=== PATIENT | female | born 1930 | race Caucasian/White ===

== ENCOUNTER → 2017-01-26 | Outpatient (CLI) | payer OTHER ==
[~2017-01-26] MED LIST: ASC400 PO; ASCA500 PO; ASCO1CAP3 PO; B-COCAP2 PO; B-COTAB18 PO; FERR1TAB23 PO; HRBLS PO; IBUP600T44 PO; PRCUNK PO; VITA1CAP5 PO; VITA400C15 PO; ZINC COMPLEX PO
[2017-01-26 17:34] LABS: HEMATOCRIT 36.3 % (37-47); MEAN CELL VOLUME 96.5 fL (80-100); MEAN CORPUSCULAR HEMOGLOBIN 30.9 pg (25-34); MEAN PLATELET VOLUME 10.5 fL (7.4-10.4); PLATELET COUNT 199 K/uL (130-400); RED BLOOD COUNT 3.76 M/uL (4.2-5.4); WHITE BLOOD COUNT 5.82 K/uL (4.8-10.8)
[2017-01-26 17:43] LABS: BLOOD UREA NITROGEN 31 mg/dl (7-18); BUN/CREATININE RATIO 20.8 (10-20); CALCIUM 8.6 mg/dl (8.5-10.1); CARBON DIOXIDE 28 mmol/L (21-32); CHLORIDE 108 mmol/L (98-107); GLUCOSE 99 mg/dl (70-99); POTASSIUM 4.4 mmol/L (3.5-5.1); SODIUM 144 mmol/L (136-145)
== END | disposition home or self-care (01) ==
LOC: C.LABPVFM 14:41
PROVIDERS: ATTEND Family Medicine
DX: D64.9 Anemia, unspecified (principal); N28.9 Disorder of kidney and ureter, unspecified

== ENCOUNTER 2017-02-22 03:51 | Emergency (ER) | payer OTHER ==
[~2017-02-22] VITALS: Ht 157.5 cm; Wt 59.9 kg
[~2017-02-22 03:51] MED LIST changes: -ASCO1CAP3 PO; -B-COTAB18 PO; -FERR1TAB23 PO; -VITA1CAP5 PO
[2017-02-22 03:58] VITALS: TEMP 36.6; Ht 157.5 cm; Wt 59.9 kg
--- NOTE | 2017-02-22 04:04 | EMERGENCY ROOM VISIT NOTE ---
History Report prepared by Sawyer: Ole Cohen Under the Supervision of: Dr. Carissa Navarrete D.O. First contact with patient: 03:55 Chief Complaint: FALL Stated Complaint: fall, lac History of Present Illness The patient is an 87 year old female who presents to the Emergency Room via emergency medical services following a traumatic falling episode that occurred shortly prior to arrival. The patient states that she was trying to get to the bathroom when she fell down the steps. She slid down the entire stair-case on her back as she could not stop herself. She is currently experiencing pain in her back and neck. She denies going unconscious at anytime during this episode. She is not on any blood thinning medication. Source of History: patient Onset: Shortly [employer] OPERATIONS [employer]IST Position: back Quality: other (Fall) Associated Symptoms: + neck pain Review of Systems See HPI for pertinent positives & negatives. A total of 10 systems reviewed and were otherwise negative. Past Medical & Surgical Medical Problems: (1) GERD (gastroesophageal reflux disease) (2) History of dementia (3) Hypertension GERD (gastroesophageal reflux disease) History of dementia Hypertension Family History No pertinent family histories secondary to age. Social History Drug Use: none Marital Status: Housing Status: lives with significant other Occupation Status: unemployed Current/Historical Medications Scheduled Ascorbic Acid (Vitamin C), 500 MG PO DAILY B-Complex Vitamins (Vitamin B Complex), 1 TAB PO DAILY Ferrous Sulfate (Iron), Unknown Dose PO DAILY Vitamin E (E400), 400 INTER.UNIT PO DAILY Allergies Coded Allergies: No Known Allergies (Verified , NONE, 02/22/17) Physical Exam Vital Signs Date Time Temp Pulse Resp B/P Pulse Ox O2 Delivery O2 Flow Rate FiO2 02/22/17 05:55 111 18 175/102 98 Room Air 02/22/17 05:46 88 02/22/17 03:58 36.6 104 18 191/118 96 Room Air Physical Exam HEENT: Head - There is a laceration on the frontal scalp, 6 cm in length. Pupils are equal, round, and reactive to light. Extraocular eye muscles are intact and sclera are anicteric. Ears - bilaterally patent canals with no evidence of hemotympanum. Nose - moist nasal mucosa without evidence of trauma or discharge. Mouth - moist buccal mucosa with no trauma to the teeth or signs of malocclusion. Neck: The cervical collar was temporarily removed while in-line stabilization was maintained. The neck is supple and there is moderate pain to palpation over the posterior cervical spine and no obvious step-offs or deformities. There is no JVD or tracheal deviation. Chest: There are no signs of deformities, contusions or abrasions to the chest wall. There is no obvious crepitus or paradoxical chest rise. Heart: Regular, rate, and rhythm. There is a normal S1 and S2 with no murmurs, clicks, or gallops appreciated. Lungs: Clear to auscultation bilaterally with no wheezes, rales, or rhonchi. Abdomen: Soft, completely nontender, nondistended, with good bowel sounds. There is no sign of trauma such as contusions, abrasions or penetrations. There are no palpable pulsatile masses or hepatosplenomegaly. There is no guarding, rigidity, or rebound noted. Pelvis: Stable to rock and compression. Extremities: No obvious trauma, deformities, contusions, or edema. There are easily palpable peripheral pulses. Neuro: The patient is awake and alert and easily able to follow commands. Muscle strength is 5 out of 5 in all 4 extremities. Otherwise, neuro exam is unremarkable. Back: There is pain to palpation in the upper thoracic spine. The entire thoracic, lumbar, and sacral spine were palpated. There are no obvious step- offs or deformities noted. There are no obvious signs of trauma such as contusions abrasions penetrations noted to the back. Medical Decision & Procedures ER Provider Diagnostic Interpretation: Radiology results as stated below per my review and the radiologist's interpretation: CT HEAD: No ICH, mass effect or edema. No skull fracture. Left Mastoid fluid. Sinus disease, may be acute in the right sphenoid. CT C SPINE: Comminuted fracture of the right anterior arch of C1. Fracture of the right posterior arch of C1. Mild widening of the anterior disc space at C1-2 on the right, may be due to ligamentous injury. CT T SPINE: Compression deformities at T3 and T7, possibly acute. Radiologist: Rajani Turcios M.D. Laboratory Results 02/22/17 04:23 02/22/17 04:23 Test 02/22/17 04:23 02/22/17 05:15 Red Blood Count 3.81 M/uL (4.2-5.4) Mean Corpuscular Volume 95.0 fL (80-100) Mean Corpuscular Hemoglobin 30.7 pg (25-34) Mean Corpuscular Hemoglobin Concent 32.3 g/dl (32-36) RDW Standard Deviation 48.5 fL (36.4-46.3) RDW Coefficient of Variation 14.0 % (11.5-14.5) Mean Platelet Volume 9.8 fL (7.4-10.4) Anion Gap 7.0 mmol/L (3-11) Est Creatinine Clear Calc Drug Dose 20.0 ml/min Estimated GFR () 33.5 Estimated GFR (Non- 28.9 BUN/Creatinine Ratio 18.5 (10-20) Calcium Level 8.8 mg/dl (8.5-10.1) Total Bilirubin 0.4 mg/dl (0.2-1) Direct Bilirubin < 0.1 mg/dl (0-0.2) Aspartate Amino Transf (AST/SGOT) 27 U/L (15-37) Alanine Aminotransferase (ALT/SGPT) 26 U/L (12-78) Alkaline Phosphatase 87 U/L (45-117) Total Protein 6.4 gm/dl (6.4-8.2) Albumin 3.1 gm/dl (3.4-5.0) Urine Color YELLOW Urine Appearance CLEAR (CLEAR) Urine pH 6.0 (4.5-7.5) Urine Specific [place] 1.015 (1.000-1.030) Urine Protein NEG (NEG) Urine Glucose (UA) NEG (NEG) Urine Ketones NEG (NEG) Urine Occult Blood 1+ (NEG) Urine Nitrite POS (NEG) Urine Bilirubin NEG (NEG) Urine Urobilinogen NEG (NEG) Urine Leukocyte Esterase TRACE (NEG) Laboratory results per my review. Medications Administered Medications (Trade) Dose Ordered Sig/Kita Route Start Time Stop Time Status Last Admin Dose Admin Fentanyl Citrate (Fentanyl Inj) 50 mcg NOW ONCE IV 02/22/17 05:45 02/22/17 05:46 DC 02/22/17 06:01 50 MCG Procedure Laceration Repair: See dictation by Patric Ash PA-C for laceration repair notes. Medications Ordered: Fentanyl ECG Indication: other (Fall) Rate (beats per minute): 81 Rhythm: normal sinus Findings: no acute ischemic change, no ectopy ED Course 0401: Past medical records reviewed. The patient was evaluated in room B12. A complete history and physical exam was performed. Laboratory studies were drawn as above. The patient went for CT scan of the brain, cervical spine and thoracic spine. She had a twelve-lead EKG as described above. 0515: Ordered Lidocaine HCl 20 mL (procedural). The wound on her scalp was repaired by Patric Sears PA-C. 0545: Ordered Fentanyl Citrate 50 mcg IV. 0546: I discussed the case with Dr. Lisa Ash day Emergency Medicine at this time, she will accept the patient for transfer to [facility]. Medical Decision This patient is an 87 year old female who presents to the emergency department following a falling episode. Differential diagnosis include; closed head injury , scalp laceration, skull fracture, intracranial trauma cervical spine fracture , and thoracic spine fracture. Laboratory studies were reviewed and show; Hemoglobin of 11.7 which is baseline for her, no leukocytosis, BUN of 30, Creatinine of 1.6 which is baseline renal function for her, normal LFTs. The patient continues to complain of neck pain and upper back pain. CT scan shows evidence of a C1 comminuted fracture. There is questionable ligamentous injury between C1-C2. She also has compression deformities at T3 and T7. The patient is neurologically intact. The patient was given fentanyl for pain. She is resting comfortably at this time. The laceration to the scalp was repaired. I discussed the case with Dr. Gonzalez at [facility] and she will accept the patient in transfer. Consults Time Called: 0540 Consulting Physician: Dr. Lisa Ash day Emergency Medicine Returned Call: [phone] I discussed the case with Dr. Lisa Ash day Emergency Medicine at this time , she will accept the patient for transfer to [facility]. Impression Primary Impression: C1 cervical fracture Additional Impressions: Fall down steps T3 vertebral fracture T7 vertebral fracture Scribe Attestation The scribe's documentation has been prepared under my direction and personally reviewed by me in its entirety. I confirm that the note above accurately reflects all work, treatment, procedures, and medical decision making performed by me. Departure Information Dispostion Transfer Acute Care Facility ([facility]) Referrals Kamlesh Galvez M.D. (PCP) Patient Instructions My [facility] Problem Qualifiers
[2017-02-22 04:36] LABS: HEMATOCRIT 36.2 % (37-47); MEAN CORPUSCULAR HEMOGLOBIN 30.7 pg (25-34); MEAN CORPUSCULAR HGB CONC 32.3 g/dl (32-36); MEAN PLATELET VOLUME 9.8 fL (7.4-10.4); PLATELET COUNT 175 K/uL (130-400); RED BLOOD COUNT 3.81 M/uL (4.2-5.4); WHITE BLOOD COUNT 6.68 K/uL (4.8-10.8)
[2017-02-22] MEDS ORDERED: ASCO1CAP3 PO (04:53)
[2017-02-22] MEDS ORDERED: VITA1CAP5 PO (04:55)
[2017-02-22] MEDS ORDERED: B-COTAB18 PO (04:56)
[2017-02-22] MEDS ORDERED: FERR1TAB23 PO (04:57)
[2017-02-22 05:09] LABS: ALT/SGPT 26 U/L (12-78); AST/SGOT 27 U/L (15-37); BLOOD UREA NITROGEN 30 mg/dl (7-18); BUN/CREATININE RATIO 18.5 (10-20); CALCIUM 8.8 mg/dl (8.5-10.1); CARBON DIOXIDE 29 mmol/L (21-32); CHLORIDE 111 mmol/L (98-107); GLUCOSE 97 mg/dl (70-99); POTASSIUM 3.8 mmol/L (3.5-5.1); SODIUM 147 mmol/L (136-145)
[2017-02-22 05:12] LABS: ALKALINE PHOSPHATASE 87 U/L (45-117)
[2017-02-22] MEDS ORDERED: XYLOCAINE 1%/SOD BICARB 20 ML VIAL INFIL ONE (05:15)
[2017-02-22] MEDS ORDERED: FENTANYL CITRATE INJ 50 MCG/1 ML 2 ML VIAL IV ONE (05:45)
--- NOTE | 2017-02-22 05:59 | EMERGENCY ROOM VISIT NOTE ---
ED Visit Note Patient was seen and evaluated the request of my attending physician, Dr. Navarrete , for a head laceration. Please see Dr. Navarrete's dictation for full history of present illness and Emergency Department course outside of this repair. In short, the patient suffered a fall down several stairs at home. Subsequently the patient now has a 6 cm fairly linear laceration over the frontal scalp. Bleeding is well-controlled. Laceration repair. Patient elects to have their laceration repaired. Verbal consent was obtained to perform the procedure. There is an abundance of materials available for the procedure. Patient is not allergic to latex. Using sterile technique the wound was cleaned with Betadine. The area was sterilely draped. 9 ml of 1% buffered lidocaine was used to anesthetize the scalp laceration. Once the patient was anesthetized, the wound was copiously irrigated under pressure with sterile saline. The wound was explored and there were no deep structures injured such as tendons, bone, or significant blood vessels. The laceration was repaired using 6 jonatan with the wound edges being well approximated. Hemostasis was achieved. The area was cleaned with sterile saline. Patient tolerated the procedure well without complications. Blood loss was negligible. Current/Historical Medications Scheduled Ascorbic Acid (Vitamin C), 500 MG PO DAILY B-Complex Vitamins (Vitamin B Complex), 1 TAB PO DAILY Ferrous Sulfate (Iron), Unknown Dose PO DAILY Vitamin E (E400), 400 INTER.UNIT PO DAILY Allergies Coded Allergies: No Known Allergies (Verified , NONE, 02/22/17) Vital Signs Date Time Temp Pulse Resp B/P Pulse Ox O2 Delivery O2 Flow Rate FiO2 02/22/17 05:46 88 02/22/17 03:58 36.6 104 18 191/118 96 Room Air Laboratory Results 02/22/17 04:23 02/22/17 04:23 Test 02/22/17 04:23 02/22/17 05:15 Red Blood Count 3.81 M/uL (4.2-5.4) Mean Corpuscular Volume 95.0 fL (80-100) Mean Corpuscular Hemoglobin 30.7 pg (25-34) Mean Corpuscular Hemoglobin Concent 32.3 g/dl (32-36) RDW Standard Deviation 48.5 fL (36.4-46.3) RDW Coefficient of Variation 14.0 % (11.5-14.5) Mean Platelet Volume 9.8 fL (7.4-10.4) Anion Gap 7.0 mmol/L (3-11) Est Creatinine Clear Calc Drug Dose 20.0 ml/min Estimated GFR () 33.5 Estimated GFR (Non- 28.9 BUN/Creatinine Ratio 18.5 (10-20) Calcium Level 8.8 mg/dl (8.5-10.1) Total Bilirubin 0.4 mg/dl (0.2-1) Direct Bilirubin < 0.1 mg/dl (0-0.2) Aspartate Amino Transf (AST/SGOT) 27 U/L (15-37) Alanine Aminotransferase (ALT/SGPT) 26 U/L (12-78) Alkaline Phosphatase 87 U/L (45-117) Total Protein 6.4 gm/dl (6.4-8.2) Albumin 3.1 gm/dl (3.4-5.0) Departure Information Referrals Kamlesh Galvez M.D. (PCP) Patient Instructions My [facility]
[2017-02-22 06:02] LABS: MANUAL MICROSCOPIC REQUIRED? YES; URINE APPEARANCE CLEAR (CLEAR); URINE BILIRUBIN NEG (NEG); URINE COLOR YELLOW; URINE NITRITE POS (NEG); URINE SPECIFIC GRAVITY 1.015 (1.000-1.030); UROBILINOGEN NEG (NEG)
[2017-02-22 06:16] LABS: REVIEW REQ? NO
[2017-02-22 06:29] LABS: URINE BACTERIA 3+ (NEG); URINE RBC 0-4 /hpf (0-4)
--- NOTE | 2017-02-22 06:31 | DIAGNOSTIC IMAGING REPORT ---
CHEST ONE VIEW PORTABLE CLINICAL HISTORY: Trauma. Chest pain. COMPARISON STUDY: 10/20/2009 FINDINGS: The cardiac and mediastinal contours are normal. There is no evidence of focal pulmonary consolidation. There is no evidence of failure. No pleural effusions are visualized.[ No pneumothorax is visualized. IMPRESSION: No active disease in the chest. Electronically signed by: Boris Mari M.D. 02/22/2017 6:30 AM Dictated Date/Time: 02/22/2017 6:29 AM
--- NOTE | 2017-02-22 06:38 | DIAGNOSTIC IMAGING REPORT ---
CT OF THE CERVICAL SPINE CLINICAL HISTORY: Neck pain status post trauma COMPARISON STUDY: No previous studies for comparison. CT DOSE: TECHNIQUE: CT scan of the cervical spine was performed from the skull base to the thoracic inlet. Images are reviewed in the axial, sagittal, and coronal planes. IV contrast was not administered for this examination. FINDINGS: The visualized portions of the lung apices reveal no evidence of pneumothorax. There is sphenoid sinus mucosal thickening. There is minimal prevertebral soft tissue swelling at the C1 level. There is a comminuted fracture of the anterior C1 arch to the right of midline. There is a fracture the posterior C1 arch on the right. Minor anterolisthesis of C6 on C7 and C7 on T1 is likely degenerative. There are multilevel degenerative changes IMPRESSION: Acute fractures involving the anterior and posterior C1 arch. Electronically signed by: Boris Mari M.D. 02/22/2017 6:36 AM Dictated Date/Time: 02/22/2017 6:32 AM
--- NOTE | 2017-02-22 07:10 | DIAGNOSTIC IMAGING REPORT ---
HEAD CT NONCONTRAST CT DOSE: HISTORY: eval for trauma - fell down steps TECHNIQUE: Multiaxial CT images of the head were performed without the use of intravenous contrast. Automated exposure control was utilized for this study. Comparison: None. Findings: Trace fluid within the right skin in size and left mastoid air cells. Scalp laceration within the left vertex. The calvarium and skull base are intact. There is no mass, hematoma, midline shift, acute infarct. White matter hypodensity is nonspecific but suggestive of microvascular ischemic change. The ventricles and sulci demonstrate mild age-related involutional changes. Impression: No acute intracranial abnormality. Left scalp laceration. Electronically signed by: Jovanni Neville M.D. 02/22/2017 7:08 AM Dictated Date/Time: 02/22/2017 7:06 AM
--- NOTE | 2017-02-22 07:25 | DIAGNOSTIC IMAGING REPORT ---
THORACIC SPINE CT CT DOSE: 1170.10 mGy.cm HISTORY: pain in upper T-spine s/p fall TECHNIQUE: Multiaxial CT images of the thoracic spine were performed and reformatted in the sagittal and coronal plane without the use of contrast. COMPARISON: None. FINDINGS: Mild superior endplate compression fractures at T3 and T7. These demonstrate less than 10% loss of height and no retropulsion. Mild degenerative disc disease throughout the majority of the thoracic spine. No pneumothorax. Severely atrophic right kidney. IMPRESSION: Mild superior endplate compression fractures at T3 and T7 which are age indeterminate. Electronically signed by: Jovanni Neville M.D. 02/22/2017 7:23 AM Dictated Date/Time: 02/22/2017 7:18 AM
[2017-02-22 07:57] VITALS: BP 177/96; PULSE 98; O2SAT 97
== END 2017-02-22 06:59 | disposition short-term general hospital (02) ==
LOC: EDBD 03:51 → C.EDB 03:53
DX: S12.030A Displaced posterior arch fracture of first cervical vertebra, initial encounter for closed fracture (principal); S22.060A Wedge compression fracture of T7-T8 vertebra, initial encounter for closed fracture; S22.030A Wedge compression fracture of third thoracic vertebra, initial encounter for closed fracture; S01.01XA Laceration without foreign body of scalp, initial encounter; W10.9XXA Fall (on) (from) unspecified stairs and steps, initial encounter; Y92.009 Unspecified place in unspecified non-institutional (private) residence as the place of occurrence of the external cause; K21.9 Gastro-esophageal reflux disease without esophagitis; I10 Essential (primary) hypertension; Z79.899 Other long term (current) drug therapy

== ENCOUNTER → 2017-04-11 | Outpatient (CLI) | payer OTHER ==
[~2017-04-11] MED LIST changes: -ASC400 PO; -ASCA500 PO; +ASCO1CAP3 PO; -B-COCAP2 PO; +B-COTAB18 PO; +FERR1TAB23 PO; -HRBLS PO; -IBUP600T44 PO; -PRCUNK PO; +VITA1CAP5 PO; -VITA400C15 PO; -ZINC COMPLEX PO
[2017-04-11 12:42] LABS: HEMATOCRIT 35.5 % (37-47); MEAN CELL VOLUME 96.5 fL (80-100); MEAN CORPUSCULAR HEMOGLOBIN 30.7 pg (25-34); MEAN CORPUSCULAR HGB CONC 31.8 g/dl (32-36); MEAN PLATELET VOLUME 10.3 fL (7.4-10.4); PLATELET COUNT 212 K/uL (130-400); RED BLOOD COUNT 3.68 M/uL (4.2-5.4); WHITE BLOOD COUNT 5.76 K/uL (4.8-10.8)
[2017-04-11 15:07] LABS: FERRITIN 33.3 ng/ml (8.0-388.0); THYROID STIMULATING HORMONE 3.41 uIu/ml (0.300-4.500)
== END | disposition home or self-care (01) ==
LOC: C.LABPVFM 10:11
PROVIDERS: ATTEND Family Medicine
DX: D64.9 Anemia, unspecified (principal); E03.9 Hypothyroidism, unspecified; N39.0 Urinary tract infection, site not specified

== ENCOUNTER → 2017-05-19 | Outpatient (CLI) | payer OTHER ==
--- NOTE | 2017-05-19 15:10 | DIAGNOSTIC IMAGING REPORT ---
RIGHT FOREARM 3 VIEWS HISTORY: Right forearm pain. Fall in home, initial encounterright Right COMPARISON: None. FINDINGS: Focal cortical step-off at the radial neck consistent with a nondisplaced radial neck fracture. There is an associated elbow effusion. The distal radius and ulna appear intact. Soft tissues are unremarkable. No radiopaque foreign bodies. IMPRESSION: Nondisplaced radial neck fracture. Electronically signed by: Jovanni Neville M.D. 05/19/2017 3:08 PM Dictated Date/Time: 05/19/2017 3:06 PM
== END | disposition home or self-care (01) ==
LOC: C.RADPV 14:46
PROVIDERS: ATTEND Nurse Practitioner
DX: S52.134A Nondisplaced fracture of neck of right radius, initial encounter for closed fracture (principal); W19.XXXA Unspecified fall, initial encounter

== ENCOUNTER → 2017-07-14 | Outpatient (CLI) | payer OTHER ==
--- NOTE | 2017-07-14 13:14 | DIAGNOSTIC IMAGING REPORT ---
RIGHT RIBS UNILATERAL WITH PA CHEST CLINICAL HISTORY: Right rib pain. COMPARISON STUDY: Chest radiograph February 22, 2017. FINDINGS: No pneumothorax or pleural effusion is present. Lungs are clear. No acute right rib fracture is identified. Pulmonary vascularity is normal. Cardiomediastinal silhouette is normal. IMPRESSION: No pneumothorax. No acute right rib fractures identified. Electronically signed by: Glenn Ramirez M.D. 07/14/2017 1:13 PM Dictated Date/Time: 07/14/2017 1:09 PM
== END | disposition home or self-care (01) ==
LOC: C.RADPV 12:12
PROVIDERS: ATTEND Neuromusculoskeletal Medicine & OMM
DX: R07.81 Pleurodynia (principal)

== ENCOUNTER → 2018-03-08 | Outpatient (CLI) | payer OTHER ==
[2018-03-08 17:44] LABS: HEMATOCRIT 35.4 % (37-47); HEMOGLOBIN 11.5 g/dL (12.0-16.0); MEAN CORPUSCULAR HEMOGLOBIN 31.5 pg (25-34); MEAN CORPUSCULAR HGB CONC 32.5 g/dl (32-36); MEAN PLATELET VOLUME 10.5 fL (7.4-10.4); PLATELET COUNT 197 K/uL (130-400); RED CELL DISTRIBUTION WIDTH CV 13.5 % (11.5-14.5); WHITE BLOOD COUNT 5.42 K/uL (4.8-10.8)
[2018-03-08 18:15] LABS: ALBUMIN 3.2 gm/dl (3.4-5.0); ALT/SGPT 26 U/L (12-78); AST/SGOT 26 U/L (15-37); BLOOD UREA NITROGEN 34 mg/dl (7-18); CALCIUM 8.8 mg/dl (8.5-10.1); CARBON DIOXIDE 28 mmol/L (21-32); CREATININE 1.69 mg/dl (0.60-1.20); GLUCOSE 97 mg/dl (70-99); POTASSIUM 4.6 mmol/L (3.5-5.1); SODIUM 140 mmol/L (136-145)
[2018-03-08 18:25] LABS: ALKALINE PHOSPHATASE 84 U/L (45-117); TOTAL PROTEIN 6.7 gm/dl (6.4-8.2)
[2018-03-09 06:04] LABS: HEMOGLOBIN A1C 5.3 % (4.5-5.6)
== END | disposition home or self-care (01) ==
LOC: C.LABPVFM 15:37
PROVIDERS: ATTEND Family Medicine
DX: I10 Essential (primary) hypertension (principal)

== ENCOUNTER → 2018-07-12 | Outpatient (CLI) | payer OTHER ==
[2018-07-12 17:39] LABS: HEMOGLOBIN 11.3 g/dL (12.0-16.0); MEAN CORPUSCULAR HEMOGLOBIN 30.5 pg (25-34); MEAN CORPUSCULAR HGB CONC 31.4 g/dl (32-36); MEAN PLATELET VOLUME 10.5 fL (7.4-10.4); PLATELET COUNT 201 K/uL (130-400); RED CELL DISTRIBUTION WIDTH CV 13.5 % (11.5-14.5); RED CELL DISTRIBUTION WIDTH SD 47.7 fL (36.4-46.3); WHITE BLOOD COUNT 5.23 K/uL (4.8-10.8)
[2018-07-12 18:05] LABS: ALBUMIN 3.2 gm/dl (3.4-5.0); ALKALINE PHOSPHATASE 82 U/L (45-117); ALT/SGPT 19 U/L (12-78); AST/SGOT 26 U/L (15-37); BLOOD UREA NITROGEN 29 mg/dl (7-18); CALCIUM 9.1 mg/dl (8.5-10.1); CARBON DIOXIDE 29 mmol/L (21-32); CHOLESTEROL 203 mg/dl (0-200); GLUCOSE 104 mg/dl (70-99); LDL CHOLESTEROL CALCULATED 120 mg/dl; POTASSIUM 4.4 mmol/L (3.5-5.1); SODIUM 141 mmol/L (136-145); TOTAL PROTEIN 6.4 gm/dl (6.4-8.2)
== END | disposition home or self-care (01) ==
LOC: C.LABPVFM 14:28
PROVIDERS: ATTEND Family Medicine
DX: E03.9 Hypothyroidism, unspecified (principal)